=== PATIENT | female | born 1985 | race Caucasian/White ===

== ENCOUNTER 2022-09-17 11:50 | Emergency (ER) | payer MEDICAID, SELFPAY ==
[~2022-09-17 11:50] MED LIST: Iopamidol 370 76% 100 ML VIAL ONE
[2022-09-17 14:04] LABS: Bilirubin Small (Negative); Blood, Urine Trace (Negative); Glucose, Urine (Dipstick) Negative (Negative); Ketone, Urine Negative (Negative); Leukocyte Negative (Negative); Nitrite Negative (Negative); Protein, Urine (Dipstick) 100 mg/dL (Neg-Trace); Urobilinogen 0.2 mg/dL (Less than 2)
[2022-09-17] MEDS ORDERED: Morphine 4 MG/ML VIAL ONE ×2 (14:04→16:40)
[2022-09-17] MEDS ORDERED: Ondansetron PF 4 MG/2 ML Vial ONE (14:04)
[2022-09-17] MEDS ORDERED: Lactated Ringer's 1,000 ML ONE ×2 (14:04→16:40)
[2022-09-17 14:08] LABS: Pregnancy Test - Urine (BHCG) Negative (Negative); Pregu Control Background? CLEAR/WHITE (CLR/WHITE); Pregu Control Bar Appear? YES (CONTROL BAR); Specific Gravity 1.031 (1.002-1.036)
[2022-09-17 14:09] LABS: Specific Gravity, Urine 1.031 (1.002-1.036)
[2022-09-17 14:10] LABS: Clarity Cloudy (Clear)
[2022-09-17 14:11] LABS: ALT (SGPT) 18 U/L (8-55); AST (SGOT) 13 U/L (5-34); Albumin 4.4 g/dL (3.5-5.0); Alkaline Phosphatase 65 U/L (40-110); Anion Gap 16 mmol/L (10-20); BUN (Urea Nitrogen) 11 mg/dL (7.0-18.7); Bilirubin, Total 0.6 mg/dL (0.2-1.2); CK (CPK) 34 U/L (29-168); Calc. Creatinine Clearance 0 mL/min (70-130); Calcium 9.7 mg/dL (7.8-10.44); Carbon Dioxide 22 mmol/L (22-29); Chloride 106 mmol/L (98-107); Estimated GFR 94; Globulin 3.7 g/dL (2.4-3.5); Glucose 85 mg/dL (70-105); Lipase 13 U/L (8-78); Magnesium 2.1 mg/dL (1.6-2.6); Potassium 3.9 mmol/L (3.5-5.1); Protein, Total 8.1 g/dL (6.0-8.3); Sodium 140 mmol/L (136-145)
[2022-09-17 14:15] LABS: Bacteria/HPF 3+ HPF (None Seen); Mucous/LPF 4+ LPF (<2+); RBC/HPF 0-3 HPF (0-3); WBC/HPF None Seen HPF (0-3)
[2022-09-17 14:19] LABS: Hemoglobin 15.4 g/dL (12.0-16.0); Mean Corpuscular HGB CONC 31.6 g/dL (32.0-36.0); Mean Corpuscular Hemoglobin 27.5 pg (27.0-31.0); Mean Corpuscular Volume 87.1 fl (78.0-98.0); Mean Platelet Volume 7.7 fL (7.4-10.4); Platelet Count 321 thou/uL (130-400); RBC Distribution Width 13.5 % (11.5-14.5); White Blood Cell (WBC) Count 14.2 thou/uL (4.8-10.8)
[2022-09-17 14:47] LABS: Eosinophils 2 % (0-10); Lymphocytes 24 % (21-51); MDiff Complete? YES; Manual Diff?? YES; Monocytes 4 % (0-10); Neutrophil 63 % (42-75); Reactive Lymphocytes 7 % (0-10)
[2022-09-17 14:48] LABS: Platelet Morphology Comment Appears Adequate; RBC Morphology Normal
[2022-09-17] MEDS ORDERED: Diphenoxylate HCl/Atropine Tablet ONE (15:13)
[2022-09-17] MEDS ORDERED: Azithromycin 250 MG TAB ONE (15:13)
[2022-09-17] MEDS ORDERED: Dicyclomine 10 MG CAP ONE (15:41)
[2022-09-17] MEDS ORDERED: Promethazine HCl 25 MG/ML VIAL ONE (16:40)
[2022-09-17] MEDS ORDERED: Sodium Chloride 0.9% 100 ML ONE (16:44)
== END 2022-09-17 18:38 | disposition home or self-care (01) ==
LOC: MADERS 11:50
DX: R19.7 Diarrhea, unspecified (principal); R11.2 Nausea with vomiting, unspecified; F17.210 Nicotine dependence, cigarettes, uncomplicated; Z79.899 Other long term (current) drug therapy
CPT/HCPCS: 74177; 80053; 81003; 81015; 81025; 82550; 83605; 83690; 83735; 85025; 87040; 87086; 93005; 94760; 96361; 96365; 96375; 96376; J2270; J2405; J2550; J7120; Q9967